=== PATIENT | male | born 1950 | race Two or more races ===

== ENCOUNTER 2022-12-25 21:10 | Emergency (ER) | payer OTHER ==
[~2022-12-25] VITALS: Ht 190.5 cm; Wt 83.9 kg
[2022-12-26] MEDS ORDERED: HYDROCHLOROTHIA25 MG PO (04:30)
== END 2022-12-26 04:35 ==
LOC: ER 21:10
DX: R55 Syncope and collapse (principal); I10 Essential (primary) hypertension; E03.9 Hypothyroidism, unspecified